=== PATIENT | female | born 1985 | race Caucasian/White ===

== ENCOUNTER → 2018-04-19 | Outpatient (CLI) | payer BC ==
[~2018-04-19] MED LIST: NO HOME MEDICATIONS; PRENATAL1 TA1 PO; TUMS SMOOTHIES PO
== END ==
LOC: COL.RAD 14:15
DX: Z31.83 Encounter for assisted reproductive fertility procedure cycle (principal)

== ENCOUNTER 2019-03-10 06:35 | Inpatient (IN) | payer BC ==
[2019-03-10] VITALS (52 sets, daily range): BP systolic 111–148; BP diastolic 60–86; PULSE 75–110; TEMP 97.3–99.2
[~2019-03-10] VITALS: Ht 165.1 cm; Wt 92.7 kg
--- NOTE | 2019-03-10 07:25 | NUR ---
Patient ambulatory onto unit for scheduled induction of labor with at side. Patient oriented to room and changes into gown. Plan of care discussed. G5L3, 38.5wks gestation. GBS+. PIH. Denies other or medical complications. Patient reports good movement and occasional mild contractions. Denies leaking of fluid, vaginal bleeding, or painful contractions. EFMs on, VS taken. IV started to left hand. LR and Pen G started per orders. Assessment completed. Consents signed by patient. SVE /-3. Pitocin started per orders. Plan of care again discussed. Questions answered. Call light within reach.
[2019-03-10] MEDS ORDERED: PEPCID 20MG TAB20 MG PO (07:50)
[2019-03-10 08:05] LABS: BASO % 0.3 % (0.0-2.0); EOS # 0.1 (0.0-0.7); EOS % 2.1 % (0-4.0); GRAN # 4.4 (1.4-6.5); GRAN % 73.2 % (42.2-75.2); HEMOGLOBIN 10.5 g/dl (12.5-16.0); LYMPH # 1.1 (1.2-3.4); LYMPH % 18.3 % (20.0-51.0); MEAN CELL VOLUME 84 fl (80.0-100.0); MEAN CORPUSCULAR HEMOGLOBIN 28 pg (27.0-31.0); MEAN CORPUSCULAR HGB CONC 33 g/dl (33.0-37.0); MEAN PLATELET VOLUME 11.7 fl (7.4-10.4); MONO # 0.3 (0.1-0.6); MONO % 5.6 % (1.7-9.3); PLATELET COUNT 168 K/mm3 (130-400); RED BLOOD COUNT 3.79 M/mm3 (4.10-5.30); REDCELL DISTRIBUTION WIDTH-CV 13.4 % (11.5-14.5)
[2019-03-10 08:49] LABS: COLLECTION METHOD CLEAN CATCH
[2019-03-10 08:58] LABS: ALBUMIN 3.2 gm/dL (3.5-5.0); BILIRUBIN,TOTAL 0.3 mg/dL (0.0-1.0); CALCIUM 8.1 mg/dL (8.4-10.2); CREATININE, serum 0.41 (0.52-1.25); POTASSIUM 3.7 mmol/L (3.4-5.0); TOTAL PROTEIN 6.2 gm/dL (6.4-8.2)
[2019-03-10 09:02] LABS: MUCOUS Present /lpf; PH 6 (5-8); URINE APPEARANCE Hazy; URINE BACTERIA Rare /hpf; URINE BILIRUBIN Negative (NEGATIVE); URINE BLOOD Negative (NEGATIVE); URINE COLOR Yellow; URINE GLUCOSE Negative (NEGATIVE); URINE KETONE Negative (NEGATIVE); URINE LEUKOCYTE ESTERASE Negative (NEGATIVE); URINE NITRATE Negative (NEGATIVE); URINE PROTEIN(semi-quant) Negative (NEGATIVE); URINE RBC 0-2 /hpf; URINE UROBILINOGEN Negative (NEGATIVE); URINE WBC 0-2 /hpf
--- NOTE | 2019-03-10 09:45 | NUR ---
Patient up to bathroom. States contractions are becoming more uncomfortable. Patient states she would like her epidural soon. Will notify Ashanti NUNEZ. Call light within reach.
--- NOTE | 2019-03-10 10:35 | NUR ---
Patient sitting up for epidural placement. Ashanti NUNEZ at bedside. 1038: Lidocaine. 1039: Epidural Catheter placed. 1041: Test Dose given by Ashanti NUNEZ, no adverse reactions noted. 1045: Patient repositioned to left tilt. Plan of care discussed. Questions answered. Will continue to monitor. Call light within reach.
--- NOTE | 2019-03-10 11:00 | NUR ---
to bedside. Plan of care discussed, questions answered. AROM at 1057 by provider, large amount of clear fluid noted. SVE 2-3/60/-3 per provider. Pericare performed. Call light within reach.
--- NOTE | 2019-03-10 11:15 | NUR ---
Patient comfortable with epidural. Pericare performed. Cha catheter placed. SVE 3-4/75/-2 by this RN. Patient repositioned to right tilt. Encouraged to rest. Denies pain or needs at this time.
--- NOTE | 2019-03-10 12:50 | NUR ---
Patient resting comfortably. SVE 4-5/75/-2. Pericare performed. Patient repositioned to left tilt with head of bed elevated. Patient denies pain or needs at this time. Call light within reach.
--- NOTE | 2019-03-10 13:45 | NUR ---
Patient comfortable with epidural. Visiting with and mother at bedside. SVE /-2. Repositioned to right tilt with head of bed elevated. Denies pain or needs at this time. Call light within reach.
--- NOTE | 2019-03-10 14:50 | NUR ---
Patient reports feeling pressure with contractions. SVE 5-6/80/-2. Patient repositioned to "ernie position". Instructed to notify RN with increased pressure, pain, or urge to push. Mother and remain at bedside. Call light within reach.
--- NOTE | 2019-03-10 16:00 | NUR ---
Patient reports rectal pressure with contractions. to bedside. SVE 6-7/90/-1 per provider. Patient repositioned to right lateral with peanut ball in place. Call light within reach.
--- NOTE | 2019-03-10 16:20 | NUR ---
Patient reports increased rectal pressure. SVE 7-8/90/-1. Repositioned to left lateral with peanut ball in place. Call light within reach.
--- NOTE | 2019-03-10 16:45 | NUR ---
Patient calls out reporting increased pressure. SVE 1. Will notify .
--- NOTE | 2019-03-10 17:05 | NUR ---
at bedside. SVE AL/+1. OP per provider. Patient repositioned to right lateral position with upper leg in stirrups. Will continue to monitor.
--- NOTE | 2019-03-10 17:20 | NUR ---
SVE Complete/+1. Patient reports increased rectal pressure and urge to push. Will notify .
--- NOTE | 2019-03-10 17:35 | NUR ---
Patient reports increased rectal pressure and urge to push. SVE Complete/+2. Patient repositioned to left lateral with upper leg in stirrup. Will continue to monitor.
--- NOTE | 2019-03-10 17:50 | NUR ---
Patient continues to report intense rectal pressure and urge to push. SVE Complete/+2. Patient repositioned to left lateral with peanut ball in place. Ashanti NUNEZ at bedside with epidural dose. Will continue to monitor.
--- NOTE | 2019-03-10 18:15 | NUR ---
Report to Linwood RN to assume care of patient at this time.
--- NOTE | 2019-03-10 18:28 | NUR ---
1819 - Dr. Pate at gowned and gloved at bedside. Pt positioned into footplates. Room set up for delivery. Educated on pushing techniques, pt verbalized understanding. 1824 - Initial push with contraction. Pt pushing well. Variable deceleration down to 95 bpm after contraction with spontaneous return to baseline after 60 seconds. 1827 - Vaginal delivery of viable baby boy. placed on mothers abdomen and care of assumed to Adriane Farmer RN. Cord clamped x [address] Pate and cut by FOB. Cord blood obtained. Pitocin off. 1831 - Spontaneous delivery of intact placenta. Fundal massage started by this RN. Fundus firm and down 1 from umbilicus, scant bleeding during massage. Pitocin restarted at 333 mL/hr. Perineum intact per Dr. Pate. EBL 100 mL. 1834 - Pericare provided. New chux beneath patient. Ice pack to perineum. Pt repositioned in bed for comfort. recovery started. See physician delivery note.
--- NOTE | 2019-03-10 21:15 | NUR ---
Pt able to lift and hold each leg off of bed for 5 seconds. Pt repositioned to sitting on edge of bed. Epidural catheter removed. Tip smooth, blue, and intact. Pt able to ambulate to bathroom independently. Pt able to void 100 mL. Pericare explained and provided. Clean gown on. Mesh panties and peripad on. Pt transferred to room 207 by wheelchair with belongings.
[2019-03-11 02:50] VITALS: BP 127/77; PULSE 98; TEMP 98.4
[2019-03-11 07:15] VITALS: BP 121/68; PULSE 88; TEMP 97.6
[2019-03-11 10:55] VITALS: BP 128/81; PULSE 95; TEMP 98
[2019-03-11 15:30] VITALS: BP 107/67; PULSE 107; TEMP 97.9
--- NOTE | 2019-03-11 19:50 | NUR ---
Discharge instructions reviewed with pt and at the bedside. Follow up instructions and precautions reviewed. Paperwork completed and signed.
--- NOTE | 2019-03-11 20:15 | NUR ---
Pt discharged home ambulatory with in carseat secured by parents.
== END 2019-03-11 20:15 | disposition home or self-care (01) | DRG 807 ==
LOC: LDR 06:35 → OB 21:38
PROVIDERS: ADMIT Obstetrics & Gynecology
PROC: 10E0XZZ Delivery of Products of Conception, External Approach (ICD-10-PCS; principal; 2019-03-10)
PROC: 3E033VJ Introduction of Other Hormone into Peripheral Vein, Percutaneous Approach (ICD-10-PCS; 2019-03-10)
PROC: 10907ZC Drainage of Amniotic Fluid, Therapeutic from Products of Conception, Via Natural or Artificial Opening (ICD-10-PCS; 2019-03-10)
DX: O13.4 Gestational [pregnancy-induced] hypertension without significant proteinuria, complicating childbirth (principal); Z37.0 Single live birth; O99.824 Streptococcus B carrier state complicating childbirth; Z3A.38 38 weeks gestation of pregnancy
CPT/HCPCS: J2540; J2590; J7120

== ENCOUNTER → 2020-10-13 | Outpatient (CLI) | payer BC ==
[~2020-10-13] MED LIST changes: +PEPCID 20MG TAB20 MG PO
[2020-10-13 13:42] LABS: COLLECTION METHOD CLEAN CATCH
[2020-10-13 13:44] LABS: BASO % 0.6 % (0.0-2.0); EOS # 0.2 (0.0-0.7); EOS % 2.7 % (0-4.0); GRAN # 4.1 (1.4-6.5); GRAN % 60.8 % (42.2-75.2); HEMATOCRIT 38.3 % (37.0-47.0); HEMOGLOBIN 12.7 g/dl (12.5-16.0); LYMPH # 1.9 (1.2-3.4); MEAN CELL VOLUME 89 fl (80.0-100.0); MEAN CORPUSCULAR HEMOGLOBIN 29 pg (27.0-31.0); MEAN CORPUSCULAR HGB CONC 33 g/dl (33.0-37.0); MEAN PLATELET VOLUME 10.4 fl (7.4-10.4); MONO # 0.4 (0.1-0.6); MONO % 6.6 % (1.7-9.3); PLATELET COUNT 233 K/mm3 (130-400); RED BLOOD COUNT 4.33 M/mm3 (4.10-5.30); REDCELL DISTRIBUTION WIDTH-CV 12.4 % (11.5-14.5)
[2020-10-13 13:50] LABS: PH 6 (5-8); SQUAMOUS EPITHELIAL 0-2 /hpf; URINE APPEARANCE Clear; URINE BACTERIA None Seen /hpf; URINE BILIRUBIN Negative (NEGATIVE); URINE BLOOD Negative (NEGATIVE); URINE COLOR Colorless; URINE GLUCOSE Negative (NEGATIVE); URINE KETONE Negative (NEGATIVE); URINE LEUKOCYTE ESTERASE Negative (NEGATIVE); URINE NITRATE Negative (NEGATIVE); URINE PROTEIN(semi-quant) Negative (NEGATIVE); URINE RBC 0-2 /hpf; URINE UROBILINOGEN Negative (NEGATIVE)
[2020-10-13 14:00] LABS: ALBUMIN 4.3 gm/dL (3.5-5.0); BILIRUBIN,TOTAL 0.5 mg/dL (0.0-1.0); CALCIUM 8.9 mg/dL (8.4-10.2); CREATININE, serum 0.53 (0.52-1.25); POTASSIUM 3.7 mmol/L (3.4-5.0); TOTAL PROTEIN 7.5 gm/dL (6.4-8.2)
== END ==
LOC: COL.RAD 13:10
PROVIDERS: Family Medicine
DX: R10.9 Unspecified abdominal pain (principal)

== ENCOUNTER 2021-06-12 11:50 | Outpatient (CLI) | payer BC ==
[~2021-06-12] VITALS: Ht 165.1 cm; Wt 94.5 kg
--- NOTE | 2021-06-12 12:00 | NUR ---
1200-G6L4 38.[address] Butler' ambulatory to LR 4 with complaints of "moisture" off and on since last night. Reports Good FM and denies LOF. Denies Contractions. Assissted into gown and placed on EFM. VSS. Amnitest negative SVE C/TH/High. Dr. Moody updated on patient. Orders recieved to discharge patient.
[2021-06-12 12:15] VITALS: BP 125/64; PULSE 80; TEMP 98.3
[2021-06-12] MEDS ORDERED: PRILOSEC 20MG20 MG (12:30)
--- NOTE | 2021-06-12 12:43 | NUR ---
Reviewed discharge instructions. Off EFM. Denies questions. Ambulatory off unit with spouse.
== END 2021-06-12 12:45 | disposition home or self-care (01) ==
LOC: LDRO 11:50
DX: Z34.93 Encounter for supervision of normal pregnancy, unspecified, third trimester (principal); Z3A.38 38 weeks gestation of pregnancy

== ENCOUNTER 2021-06-19 18:03 | Outpatient (CLI) | payer BC ==
[~2021-06-19] VITALS: Ht 165.1 cm; Wt 94.5 kg
[~2021-06-19 18:03] MED LIST changes: +PRILOSEC 20MG20 MG
[2021-06-19 18:15] VITALS: TEMP 97.8
[2021-06-19] MEDS ORDERED: PEPCID 20MG TAB20 MG PO (18:22)
[2021-06-19 18:30] VITALS: BP 118/72; PULSE 80; TEMP 97.8
--- NOTE | 2021-06-19 19:10 | NUR ---
180- 35 YO 39.4 ARRIVES TO OB UNIT, AMBULATORY, ACCOMPANIED BY SPOUSE. PT REPORTS POSSIBLE SROM AND IRREGULAR CTX. +FM, DENIES ANY VB. RN ESCORTED TO ROOM AND INSTRUCTIONS GIVEN TO PT. PT ORIENTED TO ROOM. 1814- EFM AND TOCO APPLIED. PT REPORTS MILD PAIN IN HER BACK AND RATES 3-4 OUT OF 10. SHE STATES THAT SHE IS HAVING CTX OFF AND ON BUT THEY ARE NOT PAINFUL OR CONSISTENT AT THIS TIME. AFEBRILE. VSS. PT REPORTS THAT AFTER HAVING INTERCOURSE THIS MORNING SHE NOTICED A GUSH OF CLEAR FLUID AROUND 0900. SHE STATES THAT IT HAS BEEN PERSISENT SINCE THEN. 1829- EXPLAINED TO PT ABOUT POC WHICH INCLUDES AMNIOTRACE AND CERVICAL CHECK. PT UNDERSTANDS AND CONSENTS. AMNIOTRACE NEGATIVE AND SVE 05/15/2, POSTERIOR. NO OBVIOUS FLUID OBSERVED UPON CHECK. PAD DRY UNDERNEATH PT. 1836- DR. MARSHALL NOTIFIED AND ORDERS REC'D. 1838- PT LAID FLAT WITH A RT TILT FOR 15-20 MINUTES AND WILL REPEAT AMNIOTRACE. CALL LIGHT WITHIN REACH. PT DENIES ANY NEEDS AT THIS TIME. 1899- AMNIOTRACE PERFORMED AND NEGATIVE AGAIN. PER DR. MARSHALL OKAY TO DC PT HOME WITH LABOR PRECAUTIONS IF AMNIOTRACE COMES BACK NEGATIVE AGAIN. D/W PT AND SIG. OTHER ABOUT WHEN TO RETURN BACK TO HOSPITAL. PT VERBALIZES UNDERSTANDING AND COMFORTABLE BEING DC'D HOME. 1909- DC PAPERWORK REVIEWED AND SIGNED W/ PT. DC PACKET GIVEN TO PT. PT AMBULATORY, ACCOMPANIED BY SPOUSE AND OFF UNIT AT 1909. DC HOME.
== END 2021-06-19 19:10 | disposition home or self-care (01) ==
LOC: LDRO 18:03
DX: O62.4 Hypertonic, incoordinate, and prolonged uterine contractions (principal); Z3A.00 Weeks of gestation of pregnancy not specified